=== PATIENT | female | born 1965 | race Caucasian/White ===

== ENCOUNTER → 2016-12-16 | Outpatient (CLI) | payer BC ==
[~2016-12-16] MED LIST: ASPI-496 PO; ESTR1PAT49 TD; FLUT12AE5 INH; IBUP-1223 PO; MULT-224 PO; OMEG-14 PO; OMEP20TA62 PO; PROG100C16 PO
[2016-12-16 09:21] LABS: HEMATOCRIT 45.5 % (34.6-47.8); HEMOGLOBIN 15.4 g/dL (11.7-16.4); WHITE BLOOD COUNT 7.6 x10^3/uL (3.4-10)
[2016-12-16 09:23] LABS: PATH.CAST-FLAG NOT PRESENT; SPERM-FLAG NOT PRESENT; SRC-FLAG NOT PRESENT; XTAL-FLAG NOT PRESENT; YLC-FLAG NOT PRESENT
[2016-12-16 09:32] LABS: BLOOD UREA NITROGEN 16 mg/dL (7-18)
== END | disposition home or self-care (01) ==
LOC: STAR 08:06
PROVIDERS: ATTEND Orthopaedic Surgery Orthopaedic Surgery of the Spine
DX: Z01.818 Encounter for other preprocedural examination (principal); M46.1 Sacroiliitis, not elsewhere classified; R79.1 Abnormal coagulation profile
CPT/HCPCS: 36415; 71020; 80048; 81001; 85025; 85610; 85651; 85730; 93005

== ENCOUNTER 2016-12-30 11:03 | Inpatient (IN) | payer BC ==
[2016-12-16 08:40] VITALS: BP 135/87
[~2016-12-30] VITALS: Ht 172.7 cm; Wt 92.0 kg
[2016-12-30] MEDS ORDERED: PROPOFOL 10 MG/ML, 20ML ONE (11:13)
[2016-12-30] MEDS ORDERED: ROCURONIUM 10 MG/ML ONE (11:13)
[2016-12-30] MEDS ORDERED: VANCOMYCIN PMX 1GM/200ML 200 ML IV ONE (11:30)
[2016-12-30] MEDS ORDERED: LACTATED RINGERS 1,000 ML IV SCH (11:37)
[2016-12-30] MEDS ORDERED: LIDOCAINE 1%, 2ML ONE (11:37)
[2016-12-30 11:43] VITALS: BP 135/87
[2016-12-30] MEDS ORDERED: LIDOCAINE 1%, 2ML SQ PRN (12:00)
[2016-12-30] MEDS ORDERED: BUPIVACAINE/PF 0.5% ONE (12:08)
[2016-12-30] MEDS ORDERED: NEOSPORIN OINT, 15GM ONE (12:08)
[2016-12-30] MEDS ORDERED: EPINEPHRINE 1 MG/ML, 1ML ONE (12:08)
[2016-12-30] MEDS ORDERED: FENTANYL PF 100 MCG/2ML ONE ×3 (12:17→13:56)
[2016-12-30] MEDS ORDERED: MIDAZOLAM 1 MG/ML, 2ML ONE (12:18)
[2016-12-30] MEDS ORDERED: DEXAMETHASONE 4 MG/ML, 1ML ONE ×2 (12:52)
[2016-12-30] MEDS ORDERED: ONDANSETRON 2MG/ML, 2ML ONE (12:52)
[2016-12-30] MEDS ORDERED: GLYCOPYRROLATE 0.4 MG/2 ML, 2ML ONE (12:53)
[2016-12-30] MEDS ORDERED: NEOSTIGMINE 1 MG/ML, 10ML ONE (12:53)
[2016-12-30] MEDS ORDERED: PROMETHAZINE 25 MG/ML, 1ML IV PRN (13:00)
[2016-12-30] MEDS ORDERED: OXYcodone 5 MG/5 ML ORAL.SOL UDC PO PRN (13:00)
[2016-12-30] MEDS ORDERED: ALBUTEROL SULFATE 2.5 MG/3 ML NPPB PRN (13:00)
[2016-12-30] MEDS ORDERED: HYDROmorphone 1 MG/ML, 1ML IV PRN (13:00)
[2016-12-30] MEDS ORDERED: LABETALOL 5MG/ML, 20ML IV PRN ×2 (13:00→16:00)
[2016-12-30] MEDS ORDERED: ONDANSETRON 2MG/ML, 2ML IVPush PRN (13:00)
[2016-12-30] MEDS ORDERED: MEPERIDINE/PF 25MG/0.5ML IVPush PRN (13:00)
[2016-12-30] MEDS ORDERED: hydrALAzine 20 MG/ML, 1ML IV PRN (13:00)
[2016-12-30] MEDS ORDERED: ACETAMINOPHEN 325 MG TABLET PO PRN (13:00)
[2016-12-30] MEDS ORDERED: ACETAMINOPHEN 650 MG/20.3 ML UDC ONE (13:56)
[2016-12-30] MEDS ORDERED: OXYcodone 5 MG/5 ML ORAL.SOL UDC ONE (13:57)
[2016-12-30] MEDS: FENTANYL PF 100 MCG/2ML IV PRN ×2 (14:00→14:13)
[2016-12-30] MEDS ORDERED: D5%-0.9% NACL+KCL 20MEQ 1,000 ML IV SCH (16:00)
[2016-12-30] MEDS ORDERED: DIAZEPAM 5 MG TABLET PO PRN (16:00)
[2016-12-30] MEDS ORDERED: DIPHENHYDRAMINE 50 MG/ML, 1ML IVPush PRN (16:00)
[2016-12-30] MEDS ORDERED: OXYcodone IR 5MG TABLET PO PRN ×2 (16:00)
[2016-12-30] MEDS ORDERED: ONDANSETRON 2MG/ML, 2ML IV PRN (16:00)
[2016-12-30] MEDS ORDERED: DIPHENHYDRAMINE 50 MG CAPSULE PO PRN (16:00)
[2016-12-30] MEDS ORDERED: DIPHENHYDRAMINE 50 MG/ML, 1ML IM PRN (16:00)
[2016-12-30] MEDS ORDERED: KETOROLAC 30 MG/1 ML IV PRN (16:00)
[2016-12-30] MEDS ORDERED: IBUPROFEN 800 MG TABLET PO PRN (16:00)
[2016-12-30] MEDS ORDERED: BISACODYL 10 MG SUPP PR PRN (16:00)
[2016-12-30] MEDS ORDERED: MAGNESIUM HYDROXIDE 8%, 30ML UDC PO PRN (16:00)
[2016-12-30] MEDS ORDERED: ACETAMINOPHEN 500 MG TABLET PO PRN (16:00)
[2016-12-30] MEDS ORDERED: PROMETHAZINE 25 MG/ML, 1ML IM PRN (16:00)
[2016-12-30] MEDS ORDERED: morphine SULFATE 10 MG/ML, 1ML IV PRN (16:00)
[2016-12-30] MEDS ORDERED: SODIUM CHLORIDE 0.9% 1,000 ML IV SCH (16:00)
[2016-12-30] MEDS ORDERED: ALBUTEROL/IPRATROPIUM 2.5MG/0.5MG, 3 ML NPPB PRN (17:30)
[2016-12-30] MEDS ORDERED: OXYC5TAB3 PO (18:09)
[2016-12-30] MEDS ORDERED: DIAZ5TAB PO (18:10)
[2016-12-30] MEDS ORDERED: CEPH-368 PO (18:12)
[2016-12-30] MEDS ORDERED: CEFAZOLIN PMX 1GM/50ML 50 ML IVPB SCH (19:00)
[2016-12-30] MEDS ORDERED: FLOVENT INH SCH (21:00)
[2016-12-30] MEDS ORDERED: ZOLPIDEM 5MG TABLET PO PRN (21:00)
[2016-12-31] MEDS ORDERED: ASPIRIN 81 MG TABLET EC PO SCH (06:00)
[2016-12-31] MEDS ORDERED: OMEPRAZOLE 20 MG CAPSULE.DR PO SCH (07:30)
[2016-12-31] MEDS ORDERED: SENNA/DOCUSATE TABLET PO SCH (09:00)
[2016-12-31] MEDS ORDERED: MULTIVITAMIN 1 TABLET PO SCH (09:00)
[2016-12-31] MEDS ORDERED: OMEGA-3/FISH OIL CAPSULE PO SCH (09:00)
[2017-01-02] MEDS ORDERED: LEVONORGESTREL TP SCH (09:00)
[2017-01-02] MEDS ORDERED: ESTRADIOL TP SCH (09:00)
== END 2016-12-30 18:54 | disposition home or self-care (01) | DRG 460 ==
LOC: OUT 11:03 → 4NOR 15:12 → OUT 15:18 → 4NOR 15:18
PROVIDERS: ADMIT Orthopaedic Surgery Orthopaedic Surgery of the Spine; ATTEND Orthopaedic Surgery Orthopaedic Surgery of the Spine
PROC: 4A11X4G Monitoring of Peripheral Nervous Electrical Activity, Intraoperative, External Approach (ICD-10-PCS; 2016-12-30)
PROC: 0SG804Z Fusion of Left Sacroiliac Joint with Internal Fixation Device, Open Approach (ICD-10-PCS; principal; 2016-12-30 13:00)
DX: M46.1 Sacroiliitis, not elsewhere classified (principal)
CPT/HCPCS: 72190; 76001; J0171; J1100; J2250; J2405; J2704; J2710; J3010; J3370; J3490; J7120

== ENCOUNTER → 2017-10-04 | Outpatient (CLI) | payer SELFPAY ==
[~2017-10-04] MED LIST changes: +CEPH-368 PO; +DIAZ5TAB PO; +LISI5TAB7 PO; +OXYC5TAB3 PO; +VIT1TABL32 PO
[2017-10-04 14:09] LABS: MICROSCOPIC NOT IND
[2017-10-04 14:11] LABS: CULTURE INDICATED? NO
[2017-10-04 14:18] LABS: BASOPHILS # (AUTO) 0.12 x10^3/uL (0-0.1); BASOPHILS % (AUTO) 1 % (0-1); EOSINOPHILS # (AUTO) 0.06 x10^3/uL (0-0.4); EOSINOPHILS % (AUTO) 1 % (1-7); LYMPHOCYTES # (AUTO) 1.92 x10^3/uL (1-3.4); LYMPHOCYTES % (AUTO) 20 % (22-44); MD NO; MEAN CORPUSCULAR HEMOGLOBIN 35.2 pg (27.0-34.8); MEAN CORPUSCULAR HGB CONC 33.7 g/dL (32.4-35.8); MEAN CORPUSCULAR VOLUME 104.5 fL (80-100); MEAN PLATELET VOLUME 8.1 fL (7.4-10.4); MONOCYTES # (AUTO) 0.32 x10^3/uL (0.2-0.8); MONOCYTES % (AUTO) 3 % (2-9); NEUTROPHILS # (AUTO) 7.01 x10^3/uL (1.8-6.8); NEUTROPHILS % (AUTO) 74 % (42-75); PLATELET COUNT 371 x10^3/uL (130-400); RED BLOOD COUNT 4.06 x10^6/uL (3.82-5.3); RED CELL DISTRIBUTION WIDTH 13.7 % (9.6-15.2)
[2017-10-04 14:19] LABS: HCT (SEDRATE) 42.7 % (34.6-47.8)
[2017-10-04 14:31] LABS: ALANINE AMINOTRANSFERASE 26 U/L (12-78); ALBUMIN 3.7 g/dL (3.4-5.0); ANION GAP 6 mmol/L (5-15); CALCIUM 9.4 mg/dL (8.5-10.1); CHLORIDE 107 mmol/L (98-107); CREATININE 0.81 mg/dL (0.55-1.02)
[2017-10-04 14:33] LABS: ALKALINE PHOSPHATASE 98 U/L (45-117); BILIRUBIN,TOTAL 0.5 mg/dL (0.2-1.0); TOTAL PROTEIN 8.2 g/dL (6.4-8.2)
[2017-10-04 14:34] LABS: INTERNATIONAL NORMALIZED RATIO 0.96 (0.93-1.1)
== END | disposition home or self-care (01) ==
LOC: STAR 13:14
PROVIDERS: ATTEND Orthopaedic Surgery Orthopaedic Surgery of the Spine
DX: Z01.818 Encounter for other preprocedural examination (principal); M46.01 Spinal enthesopathy, occipito-atlanto-axial region
CPT/HCPCS: 36415; 71046; 80053; 81003; 85025; 85610; 85651; 85730; 93005